=== PATIENT | female | born 1955 | race Caucasian/White ===

== ENCOUNTER 2017-08-08 09:03 | Outpatient (CLI) | payer OTHER ==
--- NOTE | 2017-08-13 17:45 | MMO ---
BILATERAL SCREENING MAMMOGRAM 08/08/17 HISTORY: 61-year-old postmenopausal female for screening. COMPARISON: 11/04/15, 02/02/14. FINDINGS: Bilateral MLO and CC views of the breasts show heterogeneously dense breast parenchyma, which may low er the sensitivity of mammography. There are benign appearing calcifications in both breasts. There i s no evidence of suspicious mass, suspicious clustered microcalcifications, or area of architectural distortion. Interpretation of this mammogram was performed with the assistance of computer aided detection. IMPRESSION: BI-RADS 2: Benign Finding(s) Routine annual screening mammography (for women over age 40). POS: ELIJAH
== END 2017-08-08 09:04 | disposition home or self-care (01) ==
LOC: SCSMAMMO 09:03
PROVIDERS: ATTEND Family Medicine
DX: Z12.31 Encounter for screening mammogram for malignant neoplasm of breast (principal)
CPT/HCPCS: 77067

== ENCOUNTER 2020-01-07 14:01 | Outpatient (CLI) | payer MEDICARE, OTHER ==
--- NOTE | 2020-01-07 14:55 | MMO ---
Left Breast MAMMO Unilat Diag [facility] LT+[facility]. CLINICAL HISTORY: Patient is 64 years old and is seen for additional evaluation requested from prior study. The patient has the following family history of breast cancer: mother, malignant (generic). The patient has no personal history of cancer. VIEWS: The views performed were: left craniocaudal spot compression with tomosynthesis; left mediolateral oblique spot compression with tomosynthesis; and left mediolateral with tomosynthesis. FILMS COMPARED: The present examination has been compared to prior imaging studies performed at [facility] on 09/23/2018 and 12/29/2019, at [facility] on 08/08/2017, and at [facility] on 01/07/2020. This study has been interpreted with the assistance of computer-aided detection. MAMMOGRAM FINDINGS: The breast is heterogeneously dense, which could obscure a lesion on mammography. There is a low density, oval mass measuring 15 millimeters with obscured margins seen in the left breast at 2 o'clock. The mass was shown to be a cyst on ultrasound. There are no suspicious masses, suspicious calcifications, or new areas of architectural distortion. IMPRESSION: THERE IS NO MAMMOGRAPHIC EVIDENCE OF MALIGNANCY. A ROUTINE FOLLOW-UP MAMMOGRAM IN 1 YEAR IS RECOMMENDED. THE RESULTS OF THIS EXAM WERE SENT TO THE PATIENT. ACR BI-RADS Category 2 - Benign finding MAMMOGRAPHY NOTE: 1. A negative mammogram report should not delay a biopsy if a dominant of clinically suspicious mass is present. 2. Approximately 10% to 15% of breast cancers are not detected by mammography. 3. Adenosis and dense breasts may obscure an underlying neoplasm. Reported by: MARTHA REILLY MD Electonically Signed: [id number]
--- NOTE | 2020-01-07 17:48 | ULT ---
LIMITED LEFT BREAST ULTRASOUND: Date: 01-07-2020 PROVIDED CLINICAL HISTORY: Abnormal mammogram. FINDINGS: Limited sonographic interrogation of the left breast was performed in the region of mammographic conc markell. There is a 1.4 cm simple cyst present in this location, corresponding to the mammogram finding. No concerning sonographic findings are evident. IMPRESSION: BIRADS category 2 - benign findings. Return to annual screening mammography recommended. POS: OFF
== END 2020-01-07 14:02 | disposition home or self-care (01) ==
LOC: BICMAMMO 14:01
PROVIDERS: ATTEND Obstetrics & Gynecology
DX: R92.8 Other abnormal and inconclusive findings on diagnostic imaging of breast (principal)
CPT/HCPCS: 76642; 77065; G0279

== ENCOUNTER 2023-03-02 18:13 | Inpatient (IN) | payer MEDICARE, OTHER ==
[2023-03-02] MEDS ORDERED: Dextrose 5% in Water 1,000 ML IV PRN (21:42)
[2023-03-02] MEDS ORDERED: HumaLOG 300 UNITS/3 ML VIAL SC PRN (21:42)
[2023-03-02] MEDS ORDERED: Glucagon 1 MG/ML KIT IM PRN (21:42)
[2023-03-02] MEDS ORDERED: hydrALAZINE 20 MG/ML VIAL SLOW IVP PRN (21:42)
[2023-03-02] MEDS ORDERED: Dextrose 50% Abboject 50 ML SYRINGE SLOW IVP PRN (21:42)
[2023-03-02] MEDS ORDERED: Ketorolac Tromethamine 30 MG/ML VIAL IVP PRN (21:44)
[2023-03-02] MEDS ORDERED: Sodium Chloride 0.9% 1,000 ML IV SCH (21:45)
[2023-03-02 21:46] VITALS: BMI 39.9
[2023-03-02] MEDS ORDERED: Albuterol 200 PUFF (6.7GM INHALER) INH PRN (21:49)
[2023-03-02] MEDS ORDERED: diphenhydrAMINE 25 MG CAP PO PRN (21:53)
[2023-03-02] MEDS: fentaNYL 50 mcg/mL 1 mL Vial SLOW IVP PRN (22:23)
[2023-03-02] MEDS: Sodium Chloride 0.9% 1,000 ML IV SCH (22:39)
[2023-03-02] MEDS: traMADol HCl 50 MG TAB PO SCH (23:03)
[2023-03-02] MEDS: Cyclobenzaprine 10 MG TAB PO PRN (23:03)
[2023-03-02] MEDS: Acetaminophen 500 MG TAB PO SCH (23:04)
[2023-03-02] MEDS ORDERED: Ketorolac Tromethamine 30 MG/ML VIAL IVP SCH (23:59)
[2023-03-03] MEDS: traMADol HCl 50 MG TAB PO PRN ×2 (00:15→15:54)
[2023-03-03] MEDS: fentaNYL 50 mcg/mL 1 mL Vial SLOW IVP PRN ×2 (02:51→04:41)
[2023-03-03] MEDS: Sodium Chloride 0.9% 1,000 ML IV SCH ×3 (04:46→19:30)
[2023-03-03] MEDS: Acetaminophen 500 MG TAB PO SCH ×4 (05:25→23:19)
[2023-03-03] MEDS: traMADol HCl 50 MG TAB PO SCH ×4 (05:26→23:22)
[2023-03-03] MEDS: Levothyroxine Sodium 100 MCG TAB PO SCH (05:27)
[2023-03-03] MEDS: Ketorolac Tromethamine 30 MG/ML VIAL IVP SCH ×4 (06:01→23:19)
[2023-03-03 06:58] LABS: #Basophils 0.1 thou/uL (0.0-0.2); #Eosinphils 0.3 thou/uL (0.0-0.7); #Monocytes 1.1 thou/uL (0.11-0.59); #Neutrophils 4.9 thou/uL (1.40-6.50); %Basophils 0.7 % (0.0-1.0); %Eosinophils 3.5 % (0.0-10.0); %Lymphocytes 23.2 % (21.0-51.0); %Monocytes 13.2 % (0.0-10.0); %Neutrophils 59.2 % (42.0-75.0); Hematocrit 38.1 % (36.0-47.0); Hemoglobin 12.3 g/dL (12.0-16.0); Mean Corpuscular HGB CONC 32.3 g/dL (32.0-36.0); Mean Corpuscular Hemoglobin 30.8 pg (27.0-31.0); Mean Corpuscular Volume 95.3 fl (78.0-98.0); Mean Platelet Volume 10.8 fL (7.4-10.4); Platelet Count 191 10x3/uL (130-400); White Blood Cell (WBC) Count 8.2 10x3/uL (4.8-10.8)
[2023-03-03 07:09] LABS: INR-International Normal Ratio 1.1; PTT 29.2 sec (22.9-36.1); Prothrombin Time 14.4 sec (12.0-14.7)
[2023-03-03 07:23] LABS: Anion Gap 10 mmol/L (10-20); BUN (Urea Nitrogen) 16 mg/dL (9.8-20.1); Calc. Creatinine Clearance 120 mL/min (70-130); Calcium 8.5 mg/dL (7.8-10.44); Carbon Dioxide 25 mmol/L (23-31); Chloride 107 mmol/L (98-107); Estimated GFR 78; Glucose 112 mg/dL (80-115); Potassium 3.9 mmol/L (3.5-5.1); Sodium 138 mmol/L (136-145)
[2023-03-03] MEDS: Polyethylene Glycol 3350 17 GM Packet PO SCH (07:50)
[2023-03-03] MEDS: Famotidine/PF 20 mg/2ml Vial SLOW IVP SCH ×2 (08:04→21:34)
[2023-03-03] MEDS: Pregabalin 50 MG CAP PO SCH ×2 (08:05→21:35)
[2023-03-03] MEDS: Loratadine 10 MG TAB PO SCH (08:05)
[2023-03-03] MEDS: Senokot S 8.6-50 MG TAB PO SCH ×2 (08:05→21:35)
[2023-03-03] MEDS: Multivitamin W/ Minerals 1 TAB PO SCH (08:05)
[2023-03-03] MEDS: Cyclobenzaprine 10 MG TAB PO PRN (09:46)
[2023-03-03] MEDS: Calcium Carbonate 500 MG ChewTAB PO PRN (12:05)
[2023-03-03 13:53] LABS: Troponin I Less than 0.010 ng/mL (< 0.028)
[2023-03-03] MEDS: cloNIDine 0.1 MG TAB PO SCH ×2 (15:40→21:35)
[2023-03-04] MEDS: Acetaminophen 500 MG TAB PO SCH ×4 (05:57→23:09)
[2023-03-04] MEDS: Ketorolac Tromethamine 30 MG/ML VIAL IVP SCH ×4 (05:59→23:10)
[2023-03-04] MEDS: Levothyroxine Sodium 100 MCG TAB PO SCH (05:59)
[2023-03-04] MEDS: traMADol HCl 50 MG TAB PO SCH ×4 (06:04→23:09)
[2023-03-04] MEDS: cloNIDine 0.1 MG TAB PO SCH ×3 (09:12→21:34)
[2023-03-04] MEDS: Loratadine 10 MG TAB PO SCH (09:13)
[2023-03-04] MEDS: Pregabalin 50 MG CAP PO SCH ×2 (09:13→21:31)
[2023-03-04] MEDS: Famotidine/PF 20 mg/2ml Vial SLOW IVP SCH ×2 (09:13→21:34)
[2023-03-04] MEDS: Multivitamin W/ Minerals 1 TAB PO SCH (09:13)
[2023-03-04] MEDS: Senokot S 8.6-50 MG TAB PO SCH ×2 (09:13→21:34)
[2023-03-04] MEDS: Polyethylene Glycol 3350 17 GM Packet PO SCH (09:13)
[2023-03-04] MEDS: Losartan 25 MG TAB PO SCH (09:13)
[2023-03-04] MEDS ORDERED: CEFAZOLIN 2 GM in Sodium Chloride 0.9% 100 ML IVPB SCH (12:15)
[2023-03-05] MEDS: Ketorolac Tromethamine 30 MG/ML VIAL IVP SCH ×4 (05:18→22:40)
[2023-03-05] MEDS: Acetaminophen 500 MG TAB PO SCH ×4 (05:29→22:39)
[2023-03-05] MEDS: traMADol HCl 50 MG TAB PO SCH ×4 (05:30→22:40)
[2023-03-05] MEDS: Levothyroxine Sodium 100 MCG TAB PO SCH (05:30)
[2023-03-05] MEDS ORDERED: PROPOFOL 20 ML ONE (06:10)
[2023-03-05] MEDS ORDERED: fentaNYL PF 100 MCG/2 ML SYRINGE ONE (06:10)
[2023-03-05] MEDS ORDERED: Rocuronium Bromide 10 MG/ML (10ML VIAL) ONE ×2 (06:12→07:38)
[2023-03-05] MEDS ORDERED: Lidocaine 1% PF 5 ML VIAL ONE ×2 (06:12→07:38)
[2023-03-05] MEDS ORDERED: Ondansetron PF 4 MG/2 ML Vial ONE ×2 (06:12→07:38)
[2023-03-05] MEDS ORDERED: Dexamethasone 4 mg/ml Vial ONE (06:12)
[2023-03-05] MEDS ORDERED: Vancomycin (BATCH) 1.5 GM/300 ML BAG ONE (06:40)
[2023-03-05] MEDS ORDERED: fentaNYL 50 mcg/mL 1 mL Vial ONE (06:57)
[2023-03-05] MEDS ORDERED: Ropivacaine 0.5% HCl/PF (150 MG/30 ML VIAL) ONE (06:57)
[2023-03-05] MEDS ORDERED: Midazolam HCl 2 mg/2 ml Vial ONE (06:57)
[2023-03-05] MEDS ORDERED: Sodium Chloride 0.9% 100 ML ONE (07:00)
[2023-03-05] MEDS ORDERED: CEFAZOLIN 2 GM VIAL ONE (07:00)
[2023-03-05] MEDS ORDERED: ePHEDrine Sulfate 50 MG/10 ML VIAL ONE ×2 (07:38→08:46)
[2023-03-05] MEDS ORDERED: Dexamethasone 20 MG/5 ML VIAL ONE (07:38)
[2023-03-05] MEDS ORDERED: PROPOFOL 200 MG/20 ML VIAL ONE (07:38)
[2023-03-05] MEDS ORDERED: PHENYLEPHRINE-NS 100 MCG/ML 10 ML SYRINGE ONE (07:38)
[2023-03-05] MEDS ORDERED: fentaNYL 50 mcg/mL 1 mL Vial SLOW IVP PRN (07:54)
[2023-03-05] MEDS ORDERED: Zolpidem Tartrate 5 MG TAB PO PRN (08:00)
[2023-03-05] MEDS ORDERED: Promethazine HCl 25 MG/ML VIAL IM PRN (08:00)
[2023-03-05] MEDS ORDERED: Ropivacaine 0.2% 550 ML 550 ML NERVE BLCK SCH (08:00)
[2023-03-05] MEDS ORDERED: Ropivacaine 0.2% HCl/PF 20 ML ONE (08:06)
[2023-03-05] MEDS ORDERED: SUGAMMADEX SODIUM 200 MG/2 ML VIAL ONE (08:58)
[2023-03-05] MEDS: Pregabalin 50 MG CAP PO SCH ×2 (10:09→20:10)
[2023-03-05] MEDS: Loratadine 10 MG TAB PO SCH (10:09)
[2023-03-05] MEDS: Polyethylene Glycol 3350 17 GM Packet PO SCH (10:09)
[2023-03-05] MEDS: Losartan 25 MG TAB PO SCH (10:09)
[2023-03-05] MEDS: cloNIDine 0.1 MG TAB PO SCH ×3 (10:09→20:13)
[2023-03-05] MEDS: Famotidine/PF 20 mg/2ml Vial SLOW IVP SCH ×2 (10:09→20:10)
[2023-03-05] MEDS: Multivitamin W/ Minerals 1 TAB PO SCH (10:09)
[2023-03-05] MEDS: Senokot S 8.6-50 MG TAB PO SCH ×2 (10:10→20:10)
[2023-03-05] MEDS: Ondansetron PF 4 MG/2 ML Vial IVP PRN ×2 (12:08→20:10)
[2023-03-05] MEDS: CEFAZOLIN 2 GM in Sodium Chloride 0.9% 100 ML IVPB SCH ×2 (14:36→22:39)
[2023-03-05] MEDS: Ipratropium/Albuterol 3 ML NEB NEB PRN (20:52)
[2023-03-05] MEDS: Cyclobenzaprine 10 MG TAB PO PRN (22:11)
[2023-03-06] MEDS: Acetaminophen 500 MG TAB PO SCH ×3 (05:44→18:15)
[2023-03-06] MEDS: Levothyroxine Sodium 100 MCG TAB PO SCH (05:44)
[2023-03-06] MEDS: Ketorolac Tromethamine 30 MG/ML VIAL IVP SCH ×3 (05:44→18:16)
[2023-03-06] MEDS: traMADol HCl 50 MG TAB PO SCH ×3 (05:45→18:20)
[2023-03-06 06:14] LABS: #Eosinphils 0.1 thou/uL (0.0-0.7); #Monocytes 1.4 thou/uL (0.11-0.59); %Basophils 0.3 % (0.0-1.0); %Eosinophils 0.8 % (0.0-10.0); %Lymphocytes 16.9 % (21.0-51.0); %Monocytes 13.4 % (0.0-10.0); %Neutrophils 68.3 % (42.0-75.0); Hemoglobin 10.4 g/dL (12.0-16.0); Mean Corpuscular HGB CONC 31.5 g/dL (32.0-36.0); Mean Corpuscular Hemoglobin 30.8 pg (27.0-31.0); Mean Corpuscular Volume 97.6 fl (78.0-98.0); Mean Platelet Volume 11.1 fL (7.4-10.4); Platelet Count 200 10x3/uL (130-400); RBC Distribution Width 13.2 % (11.5-14.5); Red Blood Cell (RBC) Count 3.38 mill/uL (4.20-5.40); White Blood Cell (WBC) Count 10.3 10x3/uL (4.8-10.8)
[2023-03-06] MEDS: cloNIDine 0.1 MG TAB PO SCH ×3 (08:36→22:12)
[2023-03-06] MEDS: Losartan 25 MG TAB PO SCH (08:41)
[2023-03-06] MEDS: Famotidine 20 MG TAB PO SCH ×2 (08:41→22:12)
[2023-03-06] MEDS: Senokot S 8.6-50 MG TAB PO SCH ×2 (08:41→22:10)
[2023-03-06] MEDS: Polyethylene Glycol 3350 17 GM Packet PO SCH (08:41)
[2023-03-06] MEDS: Multivitamin W/ Minerals 1 TAB PO SCH (08:42)
[2023-03-06] MEDS: Loratadine 10 MG TAB PO SCH (08:42)
[2023-03-06] MEDS: Pregabalin 50 MG CAP PO SCH ×2 (08:42→22:11)
[2023-03-06] MEDS: Acyclovir 400 mg Tablet PO SCH ×2 (11:22→22:12)
[2023-03-06] MEDS: Ipratropium/Albuterol 3 ML NEB NEB PRN (14:16)
[2023-03-06] MEDS: Calcium Carbonate 500 MG ChewTAB PO PRN (22:12)
[2023-03-07] MEDS: traMADol HCl 50 MG TAB PO SCH ×3 (00:26→11:36)
[2023-03-07] MEDS: Ketorolac Tromethamine 30 MG/ML VIAL IVP SCH ×3 (00:45→11:35)
[2023-03-07] MEDS: Acetaminophen 500 MG TAB PO SCH ×3 (00:46→11:35)
[2023-03-07] MEDS: Levothyroxine Sodium 100 MCG TAB PO SCH (05:44)
[2023-03-07] MEDS: cloNIDine 0.1 MG TAB PO SCH (08:42)
[2023-03-07] MEDS: Losartan 25 MG TAB PO SCH (08:42)
[2023-03-07] MEDS: Multivitamin W/ Minerals 1 TAB PO SCH (08:42)
[2023-03-07] MEDS: Famotidine 20 MG TAB PO SCH (08:42)
[2023-03-07] MEDS: Loratadine 10 MG TAB PO SCH (08:42)
[2023-03-07] MEDS: Acyclovir 400 mg Tablet PO SCH (08:43)
[2023-03-07] MEDS: Pregabalin 50 MG CAP PO SCH (08:43)
[2023-03-07] MEDS: Senokot S 8.6-50 MG TAB PO SCH (08:43)
[2023-03-07] MEDS ORDERED: Polyethylene Glycol 3350 17 GM Packet PO SCH (09:00)
[2023-03-07] MEDS: Ipratropium/Albuterol 3 ML NEB NEB PRN (11:35)
[2023-03-07 12:47] VITALS: BP 112/70; TEMP 97.9
== END 2023-03-07 15:33 | disposition home or self-care (01) | DRG 483 ==
LOC: SURG A 18:13
PROVIDERS: ADMIT Surgery; ATTEND Surgery
PROC: 0RRJ00Z Replacement of Right Shoulder Joint with Reverse Ball and Socket Synthetic Substitute, Open Approach (ICD-10-PCS; principal; 2023-03-05)
PROC: 0LS30ZZ Reposition Right Upper Arm Tendon, Open Approach (ICD-10-PCS; 2023-03-05)
DX: S42.231A 3-part fracture of surgical neck of right humerus, initial encounter for closed fracture (principal); E66.9 Obesity, unspecified; S42.291A Other displaced fracture of upper end of right humerus, initial encounter for closed fracture; W19.XXXA Unspecified fall, initial encounter; S46.011A Strain of muscle(s) and tendon(s) of the rotator cuff of right shoulder, initial encounter; E11.9 Type 2 diabetes mellitus without complications; E03.9 Hypothyroidism, unspecified; I10 Essential (primary) hypertension; Z88.5 Allergy status to narcotic agent; Z88.6 Allergy status to analgesic agent; Z88.8 Allergy status to other drugs, medicaments and biological substances; Z91.013 Allergy to seafood; Z79.51 Long term (current) use of inhaled steroids; Z79.82 Long term (current) use of aspirin; Z79.899 Other long term (current) drug therapy; Z68.39 Body mass index [BMI] 39.0-39.9, adult
CPT/HCPCS: 36415; 36416; 71045; 80048; 83880; 84484; 85025; 85610; 85730; 86850; 86900; 86901; 93005; 93010; 93306; 94640; A4306; C1713; C1776; C1889; J0360; J1100; J1885; J2250; J2405; J2704; J2795; J3010; J3370; J3490; J7050; J7620; S0028

== ENCOUNTER 2024-11-02 10:40 | Outpatient (CLI) | payer MEDICARE | END 2024-11-02 10:41 | disposition home or self-care (01) | LOC: SCSRAD 10:40 | PROVIDERS: ATTEND Family Medicine | DX: R06.02 Shortness of breath (principal) | CPT/HCPCS: 71046 ==